=== PATIENT | female | born 2005 | race American Indian/Alaskan Native ===

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

== ENCOUNTER 2025-05-15 09:37 | Emergency (ER) | payer BC ==
[2025-05-15 10:45] LABS: BASOPHILS ABSOLUTE AUTO 0.04 K/uL (0.00-0.30); BASOPHILS PERCENT AUTO 0.3 % (0.0-1.0); EOSINOPHILS ABSOLUTE AUTO 0.08 K/uL (0.00-0.70); EOSINOPHILS PERCENT AUTO 0.6 % (0.0-5.0); IMMATURE GRAN ABSOLUTE AUTO 0.04 K/uL (0.00-0.05); IMMATURE GRAN PERCENT AUTO 0.3 % (0.0-0.4); LYMPHOCYTES ABSOLUTE AUTO 2.11 K/uL (2.00-8.80); LYMPHOCYTES PERCENT AUTO 16.1 % (50.0-65.0); MEAN PLATELET VOLUME 8.7 fL (9.4-12.3); MONOCYTES ABSOLUTE AUTO 0.66 K/uL (0.10-1.40); MONOCYTES PERCENT AUTO 5.0 % (2.0-10.0); NEUTROPHILS ABSOLUTE AUTO 10.15 K/uL (1.50-8.50); NEUTROPHILS PERCENT AUTO 77.7 % (35.0-45.0); NRBC ABSOLUTE 0.00 K/uL (0.00-0.03); NRBC PERCENT 0.0 /100WBC (0.0-0.2); PLATELET COUNT,PLT 421 K/uL (150-400); RED BLOOD CELL COUNT 5.10 M/uL (4.10-5.30); WHITE BLOOD CELL COUNT,WBC 13.08 K/uL (4.5-13.5)
[2025-05-15 10:51] LABS: APPEARANCE,URINE SLT CLOUDY; GLUCOSE,URINE NEGATIVE (NEGATIVE); OCCULT BLOOD,URINE TRACE-LYSED (NEGATIVE)
[2025-05-15 11:09] LABS: SQUAMOUS EPITHELIAL CELLS,UR MODERATE
[2025-05-15] MEDS: Iopamidol 755 MG/ML 500 ML Multipack Bottle IVPUSH STA (11:14)
[2025-05-15 11:21] LABS: A/G RATIO 0.8 (0.9-1.6); ALANINE AMINOTRANSFERASE,ALT 18.0 IU/L (14-63); ASPARTATE AMNIOTRANSFERASE,AST 19.0 IU/L (15-37); BILIRUBIN TOTAL 1.6 mg/dL (0.2-1.0); BLOOD UREA NITROGEN,BUN 13.0 mg/dL (7.0-18.0); CARBON DIOXIDE,CO2 25.2 mmol/L (21.0-32.0); CHLORIDE,CL 102.0 mmol/L (98-107); CREATININE 1.1 mg/dL (0.6-1.0); EST CRCL DRUG DOSING (CG) 68.05 mL/min; GLUCOSE RANDOM 100.0 mg/dL (74-106); POTASSIUM,K 4.4 mmol/L (3.5-5.1); PROTEIN TOTAL,TP 8.3 g/dL (6.4-8.2); SODIUM,NA 140.0 mmol/L (136-145)
[2025-05-15 11:22] LABS: ESTIMATED GFR 74.0 mL/min (>60)
[2025-05-15] MEDS: cefTRIAXone 1 GM in Water For Injection, Sterile 10 ML IVPUSH ONE (11:37)
[2025-05-15] MEDS: Ondansetron 4 MG/2 ML SDV IVPUSH ONE (11:55)
[2025-05-15 12:05] VITALS: BP 114/59; PULSE 72
== END 2025-05-15 12:04 | disposition home or self-care (01) ==
LOC: MW.ED 09:37
DX: N39.0 Urinary tract infection, site not specified (principal); Z88.0 Allergy status to penicillin; Z79.899 Other long term (current) drug therapy; Z90.49 Acquired absence of other specified parts of digestive tract
CPT/HCPCS: 36415; 74177; 80053; 81001; 81025; 83690; 85025; 96374; 96375; 99284; J0696; J2405; J7030; Q9967

== ENCOUNTER 2025-06-18 11:24 | Emergency (ER) | payer BC ==
[2025-06-18] MEDS ORDERED: Sodium Chloride 0.9% 2.5 ML Syringe FLUSH PRN (11:40)
[2025-06-18] MEDS ORDERED: Sodium Chloride 0.9% 10 ML Syringe FLUSH PRN (11:40)
[2025-06-18 11:58] LABS: BASOPHILS ABSOLUTE AUTO 0.03 K/uL (0.00-0.30); BASOPHILS PERCENT AUTO 0.3 % (0.0-1.0); EOSINOPHILS ABSOLUTE AUTO 0.09 K/uL (0.00-0.70); EOSINOPHILS PERCENT AUTO 1.0 % (0.0-5.0); IMMATURE GRAN ABSOLUTE AUTO 0.02 K/uL (0.00-0.05); IMMATURE GRAN PERCENT AUTO 0.2 % (0.0-0.4); LYMPHOCYTES ABSOLUTE AUTO 1.88 K/uL (2.00-8.80); LYMPHOCYTES PERCENT AUTO 20.9 % (50.0-65.0); MEAN PLATELET VOLUME 9.0 fL (9.4-12.3); MONOCYTES ABSOLUTE AUTO 0.47 K/uL (0.10-1.40); MONOCYTES PERCENT AUTO 5.2 % (2.0-10.0); NEUTROPHILS ABSOLUTE AUTO 6.52 K/uL (1.50-8.50); NEUTROPHILS PERCENT AUTO 72.4 % (35.0-45.0); NRBC ABSOLUTE 0.00 K/uL (0.00-0.03); NRBC PERCENT 0.0 /100WBC (0.0-0.2); PLATELET COUNT,PLT 369 K/uL (150-400); RED BLOOD CELL COUNT 4.56 M/uL (4.10-5.30); WHITE BLOOD CELL COUNT,WBC 9.01 K/uL (4.5-13.5)
[2025-06-18 12:03] LABS: APPEARANCE,URINE SLT CLOUDY; GLUCOSE,URINE NEGATIVE (NEGATIVE); OCCULT BLOOD,URINE NEGATIVE (NEGATIVE)
[2025-06-18] MEDS: Ondansetron 4 MG/2 ML SDV IVPUSH ONE (12:06)
[2025-06-18] MEDS: Ketorolac 30 MG/ML SDV IVPUSH ONE (12:06)
[2025-06-18 12:12] LABS: EPITHELIAL CELLS,URINE MODERATE (NONE-FEW)
[2025-06-18] MEDS: cefTRIAXone 1 GM in Water For Injection, Sterile 10 ML IVPUSH ONE (12:22)
[2025-06-18 12:31] LABS: A/G RATIO 0.9 (0.9-1.6); ALANINE AMINOTRANSFERASE,ALT 27.0 IU/L (14-63); ASPARTATE AMNIOTRANSFERASE,AST 19.0 IU/L (15-37); BILIRUBIN TOTAL 1.1 mg/dL (0.2-1.0); BLOOD UREA NITROGEN,BUN 11.0 mg/dL (7.0-18.0); CARBON DIOXIDE,CO2 24.5 mmol/L (21.0-32.0); CHLORIDE,CL 104.0 mmol/L (98-107); CREATININE 1.0 mg/dL (0.6-1.0); EST CRCL DRUG DOSING (CG) 71.57 mL/min; GLUCOSE RANDOM 92.0 mg/dL (74-106); POTASSIUM,K 4.0 mmol/L (3.5-5.1); PROTEIN TOTAL,TP 8.2 g/dL (6.4-8.2); SODIUM,NA 139.0 mmol/L (136-145)
[2025-06-18 12:40] LABS: ESTIMATED GFR 83.0 mL/min (>60)
[2025-06-19 10:22] VITALS: BP 116/74; PULSE 95
== END 2025-06-18 14:03 | disposition home or self-care (01) ==
LOC: MW.ED 11:24
DX: N39.0 Urinary tract infection, site not specified (principal); N83.202 Unspecified ovarian cyst, left side; K21.9 Gastro-esophageal reflux disease without esophagitis; Z79.899 Other long term (current) drug therapy; Z88.0 Allergy status to penicillin; Z75.3 Unavailability and inaccessibility of health-care facilities
CPT/HCPCS: 36415; 76856; 80053; 81001; 81025; 83690; 85025; 96361; 96374; 96375; 99284; J0696; J1885; J2405; J7030

== ENCOUNTER 2025-07-02 23:08 | Emergency (ER) | payer BC ==
[2025-07-03] MEDS: Ondansetron 4 MG/2 ML SDV IVPUSH ONE (00:49)
[2025-07-03 00:57] LABS: BASOPHILS ABSOLUTE AUTO 0.03 K/uL (0.00-0.20); BASOPHILS PERCENT AUTO 0.2 % (0.0-1.0); EOSINOPHILS ABSOLUTE AUTO 0.01 K/uL (0.00-0.45); EOSINOPHILS PERCENT AUTO 0.1 % (0.0-6.0); IMMATURE GRAN ABSOLUTE AUTO 0.06 K/uL (0.00-0.05); IMMATURE GRAN PERCENT AUTO 0.3 % (0.0-0.4); LYMPHOCYTES ABSOLUTE AUTO 1.20 K/uL (1.00-4.80); LYMPHOCYTES PERCENT AUTO 6.1 % (24.0-44.0); MEAN PLATELET VOLUME 9.0 fL (9.4-12.3); MONOCYTES ABSOLUTE AUTO 0.36 K/uL (0.00-0.80); MONOCYTES PERCENT AUTO 1.8 % (0.0-8.0); NEUTROPHILS ABSOLUTE AUTO 18.07 K/uL (1.80-7.70); NEUTROPHILS PERCENT AUTO 91.5 % (41.0-71.0); NRBC ABSOLUTE 0.00 K/uL (0.00-0.02); NRBC PERCENT 0.0 /100WBC (0.0-0.2); PLATELET COUNT,PLT 384 K/uL (150-400); RED BLOOD CELL COUNT 4.77 M/uL (4.10-5.30); WHITE BLOOD CELL COUNT,WBC 19.73 K/uL (3.9-11.3)
[2025-07-03 01:06] LABS: APPEARANCE,URINE SLT CLOUDY; GLUCOSE,URINE NEGATIVE (NEGATIVE); OCCULT BLOOD,URINE TRACE-INTACT (NEGATIVE)
[2025-07-03 01:13] LABS: EPITHELIAL CELLS,URINE FEW (NONE-FEW)
[2025-07-03 01:21] LABS: A/G RATIO 0.8 (0.9-1.6); ALANINE AMINOTRANSFERASE,ALT 19.0 IU/L (14-63); ASPARTATE AMNIOTRANSFERASE,AST 15.0 IU/L (15-37); BILIRUBIN TOTAL 0.8 mg/dL (0.2-1.0); BLOOD UREA NITROGEN,BUN 12.0 mg/dL (7.0-18.0); CHLORIDE,CL 102.0 mmol/L (98-107); CREATININE 0.8 mg/dL (0.6-1.0); EST CRCL DRUG DOSING (CG) 96.86 mL/min; GLUCOSE RANDOM 119.0 mg/dL (74-106); POTASSIUM,K 4.1 mmol/L (3.5-5.1); PROTEIN TOTAL,TP 8.2 g/dL (6.4-8.2); SODIUM,NA 137.0 mmol/L (136-145)
[2025-07-03 01:32] LABS: CARBON DIOXIDE,CO2 23.8 mmol/L (21.0-32.0); ESTIMATED GFR 108.0 mL/min (>60)
[2025-07-03] MEDS: Iopamidol 755 MG/ML 500 ML Multipack Bottle IVPUSH STA (02:08)
[2025-07-03] MEDS: Ketorolac 30 MG/ML SDV IVPUSH ONE (02:13)
[2025-07-03 04:19] VITALS: BP 115/66; PULSE 71
== END 2025-07-03 04:18 | disposition home or self-care (01) ==
LOC: MW.ED 23:08
DX: J32.9 Chronic sinusitis, unspecified (principal); R10.32 Left lower quadrant pain; E86.0 Dehydration; R11.2 Nausea with vomiting, unspecified; Z90.49 Acquired absence of other specified parts of digestive tract; Z88.0 Allergy status to penicillin; Z79.899 Other long term (current) drug therapy; Z75.3 Unavailability and inaccessibility of health-care facilities
CPT/HCPCS: 36415; 74177; 80053; 81001; 81025; 83605; 83690; 85025; 87428; 87651; 96361; 96374; 96375; 99284; A9270; J1885; J2405; J7030; Q0169; Q9967